=== PATIENT | female | born 1980 | race Two or more races ===

== ENCOUNTER 2024-01-08 22:16 | Emergency (ER) | payer MEDICAID ==
[~2024-01-08] VITALS: Ht 165.1 cm; Wt 72.7 kg
[2024-01-08 22:27] VITALS: BP 124/69; PULSE 56; RESP 18; TEMP 99.2; O2SAT 100
== END 2024-01-08 23:51 | disposition left against medical advice (07) ==
LOC: EMS 22:16
DX: S61.211A Laceration without foreign body of left index finger without damage to nail, initial encounter (principal); Z53.21 Procedure and treatment not carried out due to patient leaving prior to being seen by health care provider; W26.0XXA Contact with knife, initial encounter; Y93.G3 Activity, cooking and baking; Y92.89 Other specified places as the place of occurrence of the external cause; Y99.8 Other external cause status